=== PATIENT | female | born 1995 | race Caucasian/White ===

== ENCOUNTER 2024-10-12 17:13 | Emergency (ER) | payer BC, SELFPAY ==
[2024-10-12 17:13] VITALS: BMI 24.0
[2024-10-12 17:18] VITALS: BP 134/87
[2024-10-12 17:41] LABS: % Basophils 0.8 % (0-2); % Eosinophils 1.6 % (0-6); % Immature Granulocytes 0.2 % (0-0.5); % Lymphocytes 25.4 % (20.5-51.1); % Monocytes 6.7 % (1.7-9.3); % Neutrophils 65.3 % (42.2-75.2); Absolute Basophils 0.1 10^3/uL (0-0.2); Absolute Eosinophils 0.1 10^3/uL (0-0.7); Absolute Lymphocytes 1.6 10^3/uL (1.2-3.4); Absolute Monocytes 0.4 10^3/uL (0.1-0.6); Absolute Neutrophils 4.1 10^3/uL (1.4-6.5); Hematocrit 39.4 % (37.0-47.0); Hemoglobin 13.4 g/dL (12.0-16.0); Mean Corpuscular Hgb 29.6 pg (27.0-31.0); Mean Platelet Volume 11.4 fL (7.4-10.4); Nucleated Red Blood Cells % 0 %; Platelet Count 184 10^3/uL (130-400); Red Blood Cell Count 4.53 10^6/uL (4.20-5.40); Red Cell Dist. Width 12.2 % (11.5-14.5); White Blood Cell Count 6.2 10^3/uL (4.8-10.8)
[2024-10-12 17:57] LABS: ALT (SGPT) 18 U/L (0-35); AST (SGOT) 21 U/L (14-36); Albumin 4.8 g/dl (3.5-5.0); Alkaline Phosphatase 44 U/L (38-126); Blood Urea Nitrogen 9 mg/dl (7-17); Calcium 9.4 mg/dl (8.4-10.2); Carbon Dioxide 24 mmol/L (22-30); Chloride 108 mmol/L (98-107); Glucose 92 mg/dl (70-99); Potassium 4.1 mmol/L (3.5-5.1); Sodium 140 mmol/L (135-145); Total Bilirubin 0.6 mg/dl (0.2-1.3); Total Protein 7.5 g/dl (6.3-8.2); eGFR > 60.00
[2024-10-12 18:03] LABS: Troponin I < 0.012 ng/ml
[2024-10-12 19:21] VITALS: BP 127/71
--- NOTE | 2024-10-12 20:30 | ED.GENMED ---
Addendum entered and electronically signed by Isidra Logan MD 10/12/24 22:44:
Chest x-ray reviewed by me. No acute disease. Radiology report reviewed as well
Original Note:
History of Present Illness
General
Chief Complaint: Heart Rate Problem
Source: patient
Exam Limitations: none
Time Seen by Provider: 10/12/24 20:31
Nursing documentation reviewed up to this point in time: agreed with
History of Present Illness
History of Present Illness:
Patient is a 29-year-old female with a past medical history of mitral valve prolapse with cardiac surgery during childhood, who presents with a feeling of palpitations since Saturday, which has been 4 days. Patient reports that has been fairly
constant, nothing making it better or worse. She reports that it is making her feel anxious and more aware of her breathing. She denies any chest pain, leg pain or leg swelling. She denies history of PE and DVT. She describes the palpitations as
a feeling as though her heart is stopping for very brief period of time and then restarting.
Past History
Past History
ED Past Medical History: Other (Mitral valve prolapse)
ED Past Surgical History: Cardiac
Social History
Tobacco: Non-smoker
Alcohol: None
Drug: None
Personal: Other
Living: with family
Employment: Other
Family History
Family History: Other
Review of Systems
Review of Systems
Allergies reviewed?: Yes
All Other Systems: ROS reviewed and negative except as documented in HPI and ROS
Constitutional: Reports no symptoms
EENT: Reports no symptoms
Respiratory: Reports no symptoms
Cardiac: Reports palpitations
ABD/GI: Reports no symptoms
: Reports no symptoms
Musculoskeletal: Reports no symptoms
Skin: Reports no symptoms
Neurological: Reports no symptoms
Endocrine: Reports no symptoms
Hematologic/Lymphatic: Reports no symptoms
Psychiatric: Reports no symptoms
Phy Exam
Physical Exam
Physical Exam:
Physical Exam
General: no apparent distress, not acutely ill. Well appearing
Neck: supple. no meningeal signs. normal psoterior pharynx
Heart: s1/s2 regular rate and rhythm, no murmur. equal radial pulses.
Lungs: no acute respiratory distress. clear bilaterally
Abdomen: normal bowel sounds. not tender. no CVAT
Neuro: alert and oriented. no focal neurological deficits
Skin: no rash
Psychiatric: well kept. interactive and cooperative
Extremities: no edema. no calf tenderness. negative homans. good distal pulses
Course
Orders/Labs/Results
Orders:
Orders
10/12/24 17:14
EKG [Electrocardiogram (*1)] Urgent
Reason for Study: Other
Other Reason for Exam: irregular heart rate
10/12/24 17:15
EKG- Treatment ONCE
10/12/24 17:32
Complete Blood Count/With Diff Urgent
Comprehensive Metabolic Panel Urgent
Magnesium Urgent
TSH Reflex To Free T4 Urgent
Troponin I Urgent
10/12/24 20:46
Cardiac Monitoring- Treatment ONCE
CR Chest - 2 Views Urgent
Comment:
Reason For Exam: palpitations
Abnormal Lab Results
10/12/24
17:32
MPV 11.4 H fL
(7.4-10.4)
Chloride 108 H mmol/L
(98-107)
10/12/24 17:32
10/12/24 17:32
Vital Signs
Initial and Last Documented VS:
Initial Vital Signs
Temp Pulse Resp BP Pulse Ox
98.0 F 91 18 134/87 99
10/12/24 17:18 10/12/24 17:18 10/12/24 17:18 10/12/24 17:18 10/12/24 17:18
Last Documented Vital Signs
Temp Pulse Resp BP Pulse Ox
98.0 F 70 14 102/70 100
10/12/24 17:18 10/12/24 21:45 10/12/24 21:37 10/12/24 21:04 10/12/24 21:45
MDM/Problems Addressed
Differential Diagnosis Includes:
PVCs, PACs, anxiety
MDM/Problems Addressed:
Patient presents with acute palpitations for 4 days
Chronic conditions affecting care:
History of mitral valve prolapse and cardiac surgery could lead to cardiac arrhythmias
*Pulse Oximetry
Patient hypoxic: no
*EKG
Interpreted by ED Provider?: Yes
Interpretation: abnormal
Comparison EKG: changes noted
Rate: normal
Rhythm: sinus
[place]: left axis deviation
Interval: normal interval
QRS Pattern: normal QRS
Ischemia: non-specific ST changes
*[employer] Interpretation
Rate: normal
Interpretation: normal
Rhythm: sinus and PAC's
*Critical Care Note
Total Time (30-74mins, 75-104mins- exclusive of procedures): Not Applicable
Data Reviewed
Source: patient
Patient Management
Social determinants of health affecting care: Living situation and Strong social support
Discussion with other providers: Other (Case discussed with Dr. 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
Escalation/DeEscalation of care consider admission/obs:
Patient looks extremely well and comfortable. Patient is having PACs occasionally on the heart monitor which seem correlated in real-time to her symptoms. She has no pleuritic chest pain to suggest pulmonary embolism. There are no signs of
cardiac arrhythmia such as A-fib, a flutter or heart block.
ED Attending Note
-
Portions of this chart may have been created with voice recognition software.� Occasional wrong word or��sound alike� substitutions may have occurred due to the inherent limitations of voice recognition software.
Discharge Plan
Departure
Patient Disposition: Home (Routine Discharge)
Date of Disposition: 10/12/24
Time of Disposition: 22:31
Patient with high blood pressure during this ER visit?: No
Condition: Good
Covid-19: Not Applicable
Discharge Problem:
PAC (premature atrial contraction)
Instructions: Palpitations - ED discharge instructions
Prescriptions:
No Action
captopril 25 MG tablet
25 mg PO BID
noreth-ethinyl estradiol-iron [Generess Fe] 1 EACH tablet,chewable
1 ea PO DAILY
Referrals:
Jasbir Walker MD [Family Provider, Family Practice]
Activity Restrictions/Additional Instructions:
Please call your boat hoist operator helper tomorrow. It was recommended that you get a repeat cardiac echo. If the palpitations continue, your boat hoist operator helper can consider giving you a low-dose beta-jane
Interventions
Interventions:
*General Assessment Last Done: 10/12/24 17:18
ED- Cardiac Assessment Last Done: 10/12/24 20:51
ED- Pulmonary Assessment Last Done: 10/12/24 20:51
Discharge Date and Time
Print Language: BENGALI
[2024-10-12 21:04] VITALS: BP 102/70
[2024-10-12 22:00] VITALS: BP 112/70
== END 2024-10-12 22:42 | disposition home or self-care (01) ==
LOC: EMR 17:13
PROVIDERS: Emergency Medicine; EMERGENCY PHYSICIAN Emergency Medicine; FAMILY PHYSICIAN Family Medicine
DX: R00.2 Palpitations (principal); I34.1 Nonrheumatic mitral (valve) prolapse; I49.1 Atrial premature depolarization
CPT/HCPCS: 99283; 71046; 80053; 83735; 84443; 84484; 85025; 93005